=== PATIENT | female | born 1945 | race Caucasian/White ===

== ENCOUNTER 2017-01-28 10:06 | Emergency (ER) | payer MEDICARE, OTHER ==
[2017-01-28 10:39] VITALS: TEMP 97.9
[2017-01-28 10:53] LABS: BASOPHILS % (AUTO) 1 % (0-3); EOSINOPHILS % (AUTO) 2 % (0-9); HEMATOCRIT 40 % (35-47); MEAN CORPUSCULAR HGB CONC 35.7 gm/dl (32.0-36.0); MONOCYTES % (AUTO) 7.7 % (0-12); NEUTROPHILS % (AUTO) 67.8 % (37-80)
[2017-01-28 10:55] LABS: MEAN CORPUSCULAR VOLUME 101 fL (81-99)
[2017-01-28 11:06] LABS: ALBUMIN 2.9 gm/dl (3.4-5.0); ALT 12 IU/L (14-63); ANISOCYTOSIS SLIGHT AMT; GLOM FILT RATE 70 mL/min (>60); POTASSIUM 3.3 mMol/L (3.5-5.1); SODIUM 141 mMol/L (136-145)
[2017-01-28] MEDS ORDERED: FUROSEMIDE 40 MG SOL ONE (11:08)
[2017-01-28 15:17] VITALS: BP 174/69; PULSE 51; RESP 19; O2SAT 95
== END 2017-01-28 12:15 | disposition home or self-care (01) | DRG 69 ==
LOC: ED 10:06
DX: G45.9 Transient cerebral ischemic attack, unspecified (principal); I11.0 Hypertensive heart disease with heart failure; I50.9 Heart failure, unspecified; R47.81 Slurred speech; R42 Dizziness and giddiness; Z72.0 Tobacco use; Z82.3 Family history of stroke
CPT/HCPCS: 36415; 70450; 80053; 83880; 84484; 85025; 93005; 99285; J1940